=== PATIENT | male | born 1960 | race Caucasian/White ===

== ENCOUNTER 2023-06-08 18:21 | Emergency (ER) | payer BC ==
[~2023-06-08] VITALS: Ht 167.6 cm; Wt 59.0 kg
[2023-06-08] MEDS ORDERED: HYDROCODONE/APAP 5-325MG TABLET ONE (19:44)
[2023-06-08] MEDS ORDERED: HYDROCODONE/APAP 5-325MG TABLET PO ONE (19:45)
[2023-06-08 20:03] LABS: BASOPHILS # (AUTO) 0.1 K/UL (0.0-0.2); BASOPHILS % (AUTO) 1.1 % (0.0-2.0); EOSINOPHILS # (AUTO) 0.2 K/uL (0.0-0.7); EOSINOPHILS % (AUTO) 1.8 % (0.0-7.0); HEMOGLOBIN 15.6 g/dL (12.5-16.3); LYMPHOCYTES # (AUTO) 2.5 K/uL (0.8-4.8); LYMPHOCYTES % (AUTO) 29.7 % (20.5-51.5); MEAN CORPUSCULAR HEMOGLOBIN 29.7 uug (23.8-33.4); MEAN CORPUSCULAR HGB CONC 35 g/dL (32.5-36.3); MEAN CORPUSCULAR VOLUME 85.7 fL (73.0-96.2); MONOCYTES # (AUTO) 0.8 K/uL (0.1-1.30); MONOCYTES % (AUTO) 9.5 % (0.0-11.0); NEUTROPHILS # (AUTO) 4.9 K/uL (1.8-8.9); NEUTROPHILS % (AUTO) 57.9 % (38.5-71.5); PLATELET COUNT (AUTO) 229 K/uL (152-348); RED BLOOD CELL COUNT(AUTO) 5.25 MIL/uL (4.06-5.63); RED CELL DISTRIBUTION WIDTH 13.9 % (12.1-16.2); WHITE BLOOD COUNT (AUTO) 8.4 K/uL (3.6-10.2)
[2023-06-08 20:03] LABS: *BILIRUBIN,URIN NEGATIVE (NEGATIVE); *BLOOD, URINE NEGATIVE (NEGATIVE); *CLARITY,URINE CLEAR (CLEAR); *COLOR,URINE YELLOW (YELLOW); *KETONES,URINE NEGATIVE (NEGATIVE); *PROTEIN,URINE NEGATIVE (NEGATIVE); *UROBILINOGEN,URINE 0.2 E.U./dl (NORMAL); LEUKOCYTE ESTERASE ,URINE NEGATIVE (NEGATIVE); NITRITE, URINE NEGATIVE (NEGATIVE); PH,URINE 7.5 (5.0-8.0); UGLUCOSE NEGATIVE (NEGATIVE)
[2023-06-08 20:05] LABS: DIFFERENTIAL COMMENT 1
[2023-06-08 20:18] LABS: CALCIUM 9.3 mg/dL (8.5-10.1); CREATININE 0.8 mg/dL (0.6-1.3); POTASSIUM 3.9 mmol/L (3.5-5.1)
[2023-06-08 20:22] LABS: *AMPHETAMINE, URINE POSITIVE (NEGATIVE); *BARBITURATE, URINE NEGATIVE (NEGATIVE); *BENZODIAZEPINE, URINE NEGATIVE (NEGATIVE); *CANNABINOID, URINE POSITIVE (NEGATIVE); *COCCAINE, URINE NEGATIVE (NEGATIVE); *OPIATE, URINE NEGATIVE (NEGATIVE); *PHENCYCLIDINE SCREEN,URINE NEGATIVE (NEGATIVE)
[2023-06-08 20:24] LABS: FENTANYL, URINE POSITIVE (NEGATIVE)
[2023-06-08 20:24] LABS: ALBUMIN 4.2 g/dL (3.4-5.0); BILIRUBIN,TOTAL 0.5 mg/dL (0.2-1.0); TOTAL PROTEIN, SERUM 7.6 g/dL (6.4-8.2)
[2023-06-08 20:42] LABS: URIC ACID 5.7 mg/dL (3.5-7.2)
[2023-06-08 21:03] VITALS: BP 136/84; TEMP 98.2; O2SAT 98
== END 2023-06-08 21:04 | disposition home or self-care (01) ==
LOC: ER 18:36
DX: M79.672 Pain in left foot (principal)
CPT/HCPCS: 36415; 73630; 84550; 85025; A4606; A4663

== ENCOUNTER 2023-06-10 09:20 | Emergency (ER) | payer BC ==
[~2023-06-10] VITALS: Ht 172.7 cm; Wt 68.0 kg
[2023-06-10] MEDS ORDERED: IBUPROFEN 800 MG TABLET PO ONE (09:30)
[2023-06-10] MEDS ORDERED: SULF1TAB48 PO (09:33)
[2023-06-10] MEDS ORDERED: CEPH500C2 PO (09:33)
[2023-06-10] MEDS ORDERED: MUPI22OI2 TP (09:33)
[2023-06-10] MEDS ORDERED: IBUPROFEN 800 MG TABLET ONE (09:33)
[2023-06-10] MEDS ORDERED: IBUP-1957 PO (09:33)
[2023-06-10 09:49] VITALS: BP 141/89; O2SAT 99
== END 2023-06-10 10:09 | disposition home or self-care (01) ==
LOC: ER 09:20
DX: S90.822A Blister (nonthermal), left foot, initial encounter (principal); Z79.1 Long term (current) use of non-steroidal anti-inflammatories (NSAID); Z79.899 Other long term (current) drug therapy; X58.XXXA Exposure to other specified factors, initial encounter; Y93.89 Activity, other specified; Y92.89 Other specified places as the place of occurrence of the external cause; Y99.8 Other external cause status
CPT/HCPCS: A4606; A4663

== ENCOUNTER 2023-06-12 15:28 | Emergency (ER) | payer BC ==
[~2023-06-12] VITALS: Ht 157.5 cm; Wt 73.5 kg
[~2023-06-12 15:28] MED LIST: CEPH500C2 PO; IBUP-1957 PO; MUPI22OI2 TP; SULF1TAB48 PO
[2023-06-12 16:03] VITALS: BP 142/79; TEMP 98.3; O2SAT 97
== END 2023-06-12 16:04 | disposition home or self-care (01) ==
LOC: ER 15:30
DX: T73.0XXA Starvation, initial encounter (principal); F15.10 Other stimulant abuse, uncomplicated; Z59.00 Homelessness unspecified; X58.XXXA Exposure to other specified factors, initial encounter
CPT/HCPCS: A4606; A4663

== ENCOUNTER 2023-06-19 07:49 | Emergency (ER) | payer BC ==
[~2023-06-19] VITALS: Ht 165.1 cm; Wt 60.3 kg
[2023-06-19 07:54] VITALS: O2SAT 100
[2023-06-19] MEDS ORDERED: NAPR-1164 PO (09:18)
== END 2023-06-19 09:25 | disposition home or self-care (01) ==
LOC: ER 07:49
DX: M17.12 Unilateral primary osteoarthritis, left knee (principal); Z79.899 Other long term (current) drug therapy; Z60.2 Problems related to living alone
CPT/HCPCS: 73560; A4606; A4663

== ENCOUNTER 2023-06-27 12:19 | Emergency (ER) | payer BC ==
[~2023-06-27 12:19] MED LIST changes: +NAPR-1164 PO
== END 2023-06-27 12:32 | disposition left against medical advice (07) ==
LOC: ER 12:19
DX: R19.7 Diarrhea, unspecified (principal); Z53.21 Procedure and treatment not carried out due to patient leaving prior to being seen by health care provider

== ENCOUNTER 2023-06-27 15:34 | Emergency (ER) | payer BC ==
[~2023-06-27] VITALS: Ht 165.1 cm; Wt 60.3 kg
[2023-06-27 16:13] VITALS: O2SAT 99
== END 2023-06-27 21:30 | disposition left against medical advice (07) ==
LOC: ER 15:37
DX: R19.7 Diarrhea, unspecified (principal); Z79.899 Other long term (current) drug therapy; Z60.2 Problems related to living alone
CPT/HCPCS: A4606; A4663

== ENCOUNTER 2023-06-29 04:57 | Emergency (ER) | payer BC ==
[~2023-06-29] VITALS: Ht 167.6 cm; Wt 59.0 kg
[2023-06-29 05:24] VITALS: O2SAT 98
== END 2023-06-29 05:45 | disposition left against medical advice (07) ==
LOC: ER 04:59
DX: R19.7 Diarrhea, unspecified (principal); Z53.21 Procedure and treatment not carried out due to patient leaving prior to being seen by health care provider
CPT/HCPCS: A4606; A4663

== ENCOUNTER 2023-06-30 02:33 | Emergency (ER) | payer BC ==
[~2023-06-30] VITALS: Ht 167.6 cm; Wt 59.0 kg
[2023-06-30 02:47] VITALS: O2SAT 99
== END 2023-06-30 03:30 | disposition home or self-care (01) ==
LOC: ER 02:36
DX: Z00.8 Encounter for other general examination (principal); F19.10 Other psychoactive substance abuse, uncomplicated; F17.200 Nicotine dependence, unspecified, uncomplicated; Z79.899 Other long term (current) drug therapy; Z59.00 Homelessness unspecified
CPT/HCPCS: A4606; A4663

== ENCOUNTER 2023-07-02 06:38 | Emergency (ER) | payer BC | END 2023-07-02 07:15 | disposition left against medical advice (07) | LOC: ER 06:40 | DX: M79.673 Pain in unspecified foot (principal); M25.569 Pain in unspecified knee; Z53.21 Procedure and treatment not carried out due to patient leaving prior to being seen by health care provider ==